=== PATIENT | female | born 1960 | race Caucasian/White ===

== ENCOUNTER → 2023-07-04 13:39 | Outpatient (CLI) | payer MEDICARE, MEDICAID, SELFPAY ==
--- NOTE | 2023-07-04 | DI.ECHO.S_ITS ---
[place] [facility]---------+ [facility] +---------+ : : [address] : : : : [id number] : : : : Phone: [phone] +---------+ Echocardiogram Report + + :Name: TAMIKO RENEE Study Date: 07/04/2023 Height: 64 in : :[facility] ReadingLocation: Weight: 165 lb : : Gender: Female BSA: 1.8 m2 : :: 1960 Age: 63 yrs BP: 115/72 mmHg: :Reason For Study: ATRIAL FIBRILLATION : :Ordering Physician: MARTINA, : :SAE Performed By: Julianna Manuel : :Referring: SAE MACK : + + Interpretation Summary Normal sinus rhythm. Normal LV size and wall thickness; normal wall motion and LV systolic function. EF is 55-60%. Normal chamber sizes. Aortic valve is a trileaflet structure with mild associated aortic regurgitation; otherwise no significant valvular abnormalities. No prior study available for comparison. Procedure: A two-dimensional transthoracic echocardiogram with color flow and Doppler was performed. The study quality was technically adequate. There is no prior echocardiogram noted for this patient. The patient was in sinus rhythm with heart rates between 65-77 bpm during the exam. Left Ventricle: The left ventricle is normal in size and wall thickness. The ejection fraction is estimated to be 55-60%. Right Ventricle: The right ventricle is normal in size and function. Atria: The left atrial size is normal. Right atrial size is normal. There is no Doppler evidence for an interatrial shunt. Mitral Valve: The mitral valve is normal in structure and function. There is mild mitral regurgitation. Aortic Valve: The aortic valve is trileaflet. The aortic valve opens well. There is no aortic valve stenosis. There is mild aortic regurgitation. Tricuspid Valve: The tricuspid valve is normal in structure and function. There is mild tricuspid regurgitation. The right ventricular systolic pressure is estimated to be at least 28 mmHg based on an estimated right atrial pressure of 3 mm Hg. Pulmonic Valve: The pulmonic valve leaflets are thin and pliable; valve motion is normal. There is mild pulmonic regurgitation. Great Vessels: The aortic root is normal size. The dimensions of the ascending aorta are normal. The IVC is of normal diameter and collapses greater than 50% with a sniff. This suggests a low right atrial pressure of 3 mm Hg. Pericardium/ Pleura There is no pericardial effusion. There is no pleural effusion. MMode/2D Measurements & Calculations LVIDd: 4.8 cm LVOT diam: 2.0 cm LVIDs: 3.5 cm Ao root diam: 3.0 cm FS: 26.9 % asc Aorta Diam: 3.4 cm EPSS: 0.59 cm Ao Arch Diam (Prox Trans): 2.4 cm IVSd: 0.79 cm LVPWd: 0.76 cm LV fry. diameter/BSA (cm/m^2): 2.6 LV sys. diameter/BSA (cm/m^2): 1.9 LA A2 area: 17.0 cm2 RA long axis: 5.1 cm LA A4 area: 21.0 cm2 RA area: 15.7 cm2 LA length (vol): 5.6 cm RA vol: 41.0 ml LA vol: 54.2 ml RA : 22.8 ml/m2 LA vol index: 30.1 ml/m2 IVC diam: 1.8 cm RVD1 (basal): 3.7 cm RVD2 (mid): 2.7 cm TAPSE: 2.2 cm Doppler Measurements & Calculations Ao V2 max: 176.7 cm/sec LVOT Max Melchor: 96.1 cm/sec Ao V2 mean: 115.3 cm/sec LV V1 max P.7 mmHg Ao max P.5 mmHg LV V1 VTI: 21.1 cm Ao mean P.0 mmHg NACHO(I,D): 1.9 cm2 Ao V2 VTI: 36.4 cm NACHO(V,D): 1.8 cm2 sev ratio: 0.58 NACHO indexed to BSA (cm^2/m^2): 1.1 AI P1/2t: 617.2 msec AI dec slope: 212.7 cm/sec2 MV E max melchor: 94.1 cm/sec TR max melchor: 250.5 cm/sec MV A max melchor: 100.4 cm/sec TR max P.1 mmHg MV E/A: 0.94 PA V2 max: 102.5 cm/sec Med Peak E' Melchor: 7.9 cm/sec PA V2 mean: 67.6 cm/sec E/E' med: 11.9 PA mean P.1 mmHg Lat Peak E' Melchor: 10.1 cm/sec PA pr(Accel): 31.0 mmHg E/E' lat: 9.3 E/e' average: 10.6 MV dec time: 0.23 sec SV(LVOT): 69.0 ml Electronically signed by: Destiny Briones M.D. on [place] [facility]:07/05/2023 05:01 AM
== END ==
PROVIDERS: PCP Physician Assistant Medical; Referring Provider Physician Assistant Medical; Visit Provider Physician Assistant Medical
DX: I48.91 Unspecified atrial fibrillation (principal); I35.1 Nonrheumatic aortic (valve) insufficiency
CPT/HCPCS: 93306